=== PATIENT | male | born 1950 | race Caucasian/White ===

== ENCOUNTER → 2017-10-10 | Outpatient (CLI) | payer MEDICARE, BC ==
[~2017-10-10] MED LIST: CLARITIN D PO; SIMVASTATIN PO; VALTREX PO; VALTREX500 MG PO; ZOLOFT25 MG PO
--- NOTE | 2017-10-22 10:23 | Polysomnography ---
DATE OF STUDY: October 10, 2017 DIAGNOSTIC POLYSOMNOGRAM HISTORY: This is a 67-year-old gentleman with excessive daytime sleepiness as well as insomnia. Patient reportedly had a January 2016 polysomnogram, for which the results are unknown to us. Patient has never used a positive airway pressure device at home. 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 CURRENT MEDICATIONS: Include insulin, itraconazole, Xyzal, mycophenolate, pantoprazole, Pravachol, prednisone, Bactrim, tacrolimus, Valcyte, Nasacort drip. Patient with BMI of 27.3. [place] sleepiness scale score is 8. Patient presents for a diagnostic polysomnogram. FINDINGS: Polysomnogram revealed total sleep time of 339 minutes with sleep efficiency of 84.3%. Sleep onset latency was achieved in 17.5 minutes and there was no early REM sleep upon review of polysomnogram. All sleep stages were noted. Stage N1 8.3%, N2 37.0%, N3 35.7%, REM 19.0% of total sleep time. The patient stated prior to study he "does not sleep on his back due to defect". A total of 1 central apnea, 0 obstructive apnea, 1 hypopnea was noted for apnea-hypopnea index of 0.4 events per hour. The lowest oxygen saturation was 94%. Intermittent snoring was noted. Patient had few respiratory events related arousals in REM sleep when on the side, although no significant apnea was noted. No significant periodic limb movements of sleep were noted on this night. Single-lead EKG analysis demonstrated sinus rhythm, and was unremarkable without ectopy noted. INTERPRETATION: This is an abnormal polysomnogram due to the presence of: 1. Intermittent snoring. Multiple factors such as overweight status, thyroid disease, and structural/obstructive abnormalities in the upper airway can be contributory. An evaluation and management of these factors may be helpful. The patient does not require CPAP therapy. An ENT examination may be helpful if snoring persists and creates significant lifestyle difficulties to the patient or to significant other. Patient notably on treatment for allergic rhinosinusitis and medicine optimization of this condition may help. MD JERICA Slade Certified in Sleep Medicine Job#: [id number] DR ISSA
== END ==
LOC: SLEEP 20:17
PROVIDERS: ATTEND Internal Medicine
DX: G47.8 Other sleep disorders (principal); R06.83 Snoring; G47.00 Insomnia, unspecified; E66.3 Overweight; J30.9 Allergic rhinitis, unspecified
CPT/HCPCS: 95810